=== PATIENT | male | born 1955 | race Caucasian/White ===

== ENCOUNTER → 2021-04-13 | Outpatient (CLI) | payer MEDICARE, OTHER ==
[~2021-04-13] MED LIST: CRESTOR20 MG PO; ECOTRIN81 MG PO; GLIMEPIRIDE4 MG PO; HUMALOG MI100 UNITS/ SC; JANUVIA100 MG PO; LANTUS100 UNITS/ SQ; LOVAZA PO; METOPROLOL TART50 MG PO; NIASPAN500 MG PO; TRICOR145 MG PO; ZESTRIL10 MG PO; [UNRECOGNIZED DRUG - OTHER] PO
== END ==
LOC: MRI 10:28
PROVIDERS: ATTEND Family Medicine
DX: M48.061 Spinal stenosis, lumbar region without neurogenic claudication (principal); M54.16 Radiculopathy, lumbar region
CPT/HCPCS: 72148

== ENCOUNTER → 2021-06-16 | Day surgery (SDC) | payer MEDICARE, OTHER ==
[2021-06-09 13:31] LABS: BASOPHILS % 0.3 % (0.0-1.0); EOSINOPHILS # (AUTO) 0.1 (0.0-0.4); EOSINOPHILS % 0.8 % (0.0-6.0); HEMATOCRIT 45.1 % (38.2-49.6); HEMOGLOBIN 14.2 g/dL (14.0-18.0); LYMPHOCYTES # (AUTO) 2.1 (1.0-3.2); LYMPHOCYTES % 23.5 % (18.0-39.1); MEAN CORPUSCULAR HEMOGLOBIN 27.4 pg (28-32); MEAN CORPUSCULAR HGB CONC 31.5 g/dL (31-35); MEAN CORPUSCULAR VOLUME 86.9 fL (81-99); MONOCYTES # (AUTO) 0.9 (0.2-0.8); NEUTROPHILS # (AUTO) 5.7 (2.1-6.9); NEUTROPHILS % 65.1 % (38.7-80.0); PLATELET COUNT 204 x10e3/uL (140-360); RED BLOOD COUNT 5.19 x10e6/uL (4.3-5.7); RED CELL DISTRIBUTION WIDTH 14.6 % (11.7-14.4)
[2021-06-09 13:51] LABS: ALBUMIN 4.5 g/dL (3.5-5.0); ALBUMIN/GLOBULIN RATIO 1.3 (0.8-2.0); CALCIUM 10.3 mg/dL (8.4-10.2); CHOL/HDL RATIO 3.5 (3.9-4.7); CREATININE, SERUM 0.9 mg/dL (0.72-1.25)
[2021-06-09 13:54] LABS: INR 0.92
[2021-06-11 09:29] VITALS: BP 164/73
[~2021-06-16] VITALS: Ht 182.9 cm; Wt 84.8 kg
[2021-06-16] VITALS (11 sets, daily range): BP systolic 108–148; BP diastolic 60–89
[~2021-06-16] MED LIST changes: +ASPIRIN 325 MG TAB ONE; +CENTRUM ADULTS1 EACH PO; +FENTANYL CITRATE/PF 100MCG/2 ML INJ ONE; +GABAPENTIN100 MG PO; +HEPARIN SOD (PORCINE) 1000 UNIT/ML 30ML ONE; +HEPARIN SOD/SOD CHLORIDE 1,000 ML ONE; +HEPARIN SOD/SOD CHLORIDE 2,000 ML ONE; +IOPAMIDOL 370 MG/ML 200 ML INFUS..BTL INJ ONE; +JARDIANCE10 MG PO; +LIDOCAINE HCL 2% LOCAL 20 ML VIAL ONE; +LIPITOR20 MG PO; +METFORMIN HCL500 MG PO; +MIDAZOLAM HCL 2 MG/2 ML VIAL ONE; +NITROGLYCERIN/D5W 200 MCG/ML 250 ML ONE; +PANTOPRAZOLE SO40 MG PO; +SODIUM CHLORIDE 0.9% 1000ML 1,000 ML ONE; +TICAGRELOR 90 MG TABLET ONE
== END | disposition home or self-care (01) ==
LOC: CATH LAB 06-11 08:46
PROVIDERS: ATTEND Internal Medicine Cardiovascular Disease
DX: I25.810 Atherosclerosis of coronary artery bypass graft(s) without angina pectoris (principal); R94.39 Abnormal result of other cardiovascular function study; I73.9 Peripheral vascular disease, unspecified; I10 Essential (primary) hypertension; E78.5 Hyperlipidemia, unspecified; R09.89 Other specified symptoms and signs involving the circulatory and respiratory systems; E11.9 Type 2 diabetes mellitus without complications; Z71.3 Dietary counseling and surveillance; Z01.812 Encounter for preprocedural laboratory examination; Z20.822 Contact with and (suspected) exposure to COVID-19; Z79.82 Long term (current) use of aspirin; Z79.4 Long term (current) use of insulin; Z79.899 Other long term (current) drug therapy; Z95.1 Presence of aortocoronary bypass graft; Z95.5 Presence of coronary angioplasty implant and graft
CPT/HCPCS: 93459; C9600; 36415; 80053; 80061; 85025; 85610; 92920; 92928; 93458; 99152; 99153; C1725; C1760; C1769; C1874; C1887; C1894; J1644; J2001; J2250; J3010; J7030; Q9967; U0002

== ENCOUNTER 2021-06-30 12:44 | Inpatient (IN) | payer MEDICARE, OTHER ==
[~2021-06-30] VITALS: Ht 182.9 cm; Wt 81.2 kg
[~2021-06-30 12:44] MED LIST changes: -ASPIRIN 325 MG TAB ONE; -FENTANYL CITRATE/PF 100MCG/2 ML INJ ONE; -HEPARIN SOD (PORCINE) 1000 UNIT/ML 30ML ONE; -HEPARIN SOD/SOD CHLORIDE 1,000 ML ONE; -HEPARIN SOD/SOD CHLORIDE 2,000 ML ONE; -IOPAMIDOL 370 MG/ML 200 ML INFUS..BTL INJ ONE; -LIDOCAINE HCL 2% LOCAL 20 ML VIAL ONE; -MIDAZOLAM HCL 2 MG/2 ML VIAL ONE; -NITROGLYCERIN/D5W 200 MCG/ML 250 ML ONE; -SODIUM CHLORIDE 0.9% 1000ML 1,000 ML ONE; -TICAGRELOR 90 MG TABLET ONE
[2021-06-30 13:34] LABS: BASOPHILS % 0.3 % (0.0-1.0); EOSINOPHILS # (AUTO) 0.1 (0.0-0.4); EOSINOPHILS % 0.4 % (0.0-6.0); LYMPHOCYTES # (AUTO) 1.7 (1.0-3.2); LYMPHOCYTES % 14.9 % (18.0-39.1); MEAN CORPUSCULAR HEMOGLOBIN 26.4 pg (28-32); MEAN CORPUSCULAR VOLUME 90.8 fL (81-99); MONOCYTES % 8.9 % (4.4-11.3); NEUTROPHILS # (AUTO) 8.5 (2.1-6.9); NEUTROPHILS % 74.9 % (38.7-80.0); PLATELET COUNT 295 x10e3/uL (140-360); RED BLOOD COUNT 2.39 x10e6/uL (4.3-5.7); RED CELL DISTRIBUTION WIDTH 15.8 % (11.7-14.4)
[2021-06-30 13:36] LABS: HEMATOCRIT 21.7 % (38.2-49.6); HEMOGLOBIN 6.3 g/dL (14.0-18.0)
[2021-06-30 13:48] LABS: INR 0.91; PROTHROMBIN TIME 12.9 seconds (11.9-14.5)
[2021-06-30 13:57] LABS: ALBUMIN 3.9 g/dL (3.5-5.0); ALBUMIN/GLOBULIN RATIO 1.3 (0.8-2.0); ANION GAP 15.2 mmol/L (8-16); CALCIUM 9.7 mg/dL (8.4-10.2); CREATININE, SERUM 0.97 mg/dL (0.72-1.25); POTASSIUM 4.2 mmol/L (3.5-5.1)
[2021-06-30] MEDS ORDERED: SODIUM CHLORIDE 0.9% 250ML 250 ML IV ONE (14:00)
[2021-06-30 14:04] LABS: CREATINE KINASE MB 2.9 ng/mL (0-5.0)
[2021-06-30 16:23] VITALS: BP 130/34
[2021-06-30 16:30] VITALS: BP 130/34
[2021-06-30 17:14] VITALS: BP 102/49
[2021-06-30] MEDS ORDERED: SODIUM CHLORIDE 0.9% 500ML 500 ML ONE (19:51)
[2021-06-30 20:00] VITALS: BP 107/49
[2021-06-30 21:40] LABS: CREATINE KINASE MB 3.4 ng/mL (0-5.0)
[2021-06-30] MEDS ORDERED: PANTOPRAZOLE SOD 40 MG TABEC PO ONE (22:30)
[2021-06-30] MEDS ORDERED: CLOPIDOGREL BISULFATE 75 MG TAB PO ONE (22:30)
[2021-06-30] MEDS ORDERED: LISINOPRIL 20 MG TAB PO ONE (22:30)
[2021-07-01] VITALS (8 sets, daily range): BP systolic 110–129; BP diastolic 48–61
[2021-07-01 00:36] LABS: FERRITIN 12.75 ng/mL (21.81-274.66)
[2021-07-01 06:10] LABS: BASOPHILS % 0.3 % (0.0-1.0); EOSINOPHILS # (AUTO) 0.1 (0.0-0.4); HEMATOCRIT 24.4 % (38.2-49.6); HEMOGLOBIN 7.5 g/dL (14.0-18.0); LYMPHOCYTES # (AUTO) 1.6 (1.0-3.2); LYMPHOCYTES % 22.3 % (18.0-39.1); MEAN CORPUSCULAR HEMOGLOBIN 27.4 pg (28-32); MEAN CORPUSCULAR HGB CONC 30.7 g/dL (31-35); MEAN CORPUSCULAR VOLUME 89.1 fL (81-99); MONOCYTES # (AUTO) 0.8 (0.2-0.8); MONOCYTES % 11.1 % (4.4-11.3); NEUTROPHILS # (AUTO) 4.7 (2.1-6.9); NEUTROPHILS % 64.7 % (38.7-80.0); PLATELET COUNT 217 x10e3/uL (140-360); RED BLOOD COUNT 2.74 x10e6/uL (4.3-5.7); RED CELL DISTRIBUTION WIDTH 15.3 % (11.7-14.4)
[2021-07-01 06:29] LABS: ALBUMIN 3.1 g/dL (3.5-5.0); ALBUMIN/GLOBULIN RATIO 1.2 (0.8-2.0); ANION GAP 12.9 mmol/L (8-16); CALCIUM 8.7 mg/dL (8.4-10.2); CREATININE, SERUM 0.85 mg/dL (0.72-1.25); POTASSIUM 3.9 mmol/L (3.5-5.1)
[2021-07-01 06:37] LABS: CREATINE KINASE MB 2.6 ng/mL (0-5.0)
[2021-07-01] MEDS ORDERED: PANTOPRAZOLE SOD 40 MG TABEC PO SCH (07:30)
[2021-07-01] MEDS: INSULIN GLARGINE 100 UNITS/ML VIAL SQ SCH ×2 (09:00→16:44)
[2021-07-01] MEDS: NON-FORMULARY MEDICATION (Empagliflozin (Jardiance) 10 MG) PO SCH (09:00)
[2021-07-01] MEDS: CYANOCOBALAMIN INJ 1,000 MCG/ML VIAL IM SCH (09:26)
[2021-07-01] MEDS: CLOPIDOGREL BISULFATE 75 MG TAB PO SCH ×2 (09:26→16:37)
[2021-07-01] MEDS: METOPROLOL TARTRATE 50 MG TAB PO SCH (16:37)
[2021-07-01] MEDS: LISINOPRIL 20 MG TAB PO SCH (16:37)
[2021-07-01] MEDS: ATORVASTATIN 40 MG TAB PO SCH (21:21)
[2021-07-02] VITALS (7 sets, daily range): BP systolic 101–123; BP diastolic 50–57
[2021-07-02] MEDS: NON-FORMULARY MEDICATION (Empagliflozin (Jardiance) 10 MG) PO SCH (08:18)
[2021-07-02] MEDS: CYANOCOBALAMIN INJ 1,000 MCG/ML VIAL IM SCH (08:18)
[2021-07-02] MEDS: INSULIN GLARGINE 100 UNITS/ML VIAL SQ SCH ×2 (09:00→17:00)
[2021-07-02] MEDS ORDERED: PROPOFOL IV EMULSION 10 MG/ML 20 ML VIAL ONE (12:11)
[2021-07-02] MEDS ORDERED: METOCLOPRAMIDE HCL 10 MG/2ML VIAL ONE (12:11)
[2021-07-02] MEDS ORDERED: LIDOCAINE HCL 2% LOCAL INJ 5 ML SDV VIAL INJ ONE (12:11)
[2021-07-02] MEDS ORDERED: EPHEDRINE SULFATE INJ 50 MG/ML VIAL ONE (12:11)
[2021-07-02 12:46] LABS: BASOPHILS % 0.3 % (0.0-1.0); EOSINOPHILS # (AUTO) 0.1 (0.0-0.4); EOSINOPHILS % 0.8 % (0.0-6.0); HEMOGLOBIN 7.7 g/dL (14.0-18.0); LYMPHOCYTES # (AUTO) 1.8 (1.0-3.2); LYMPHOCYTES % 27.7 % (18.0-39.1); MEAN CORPUSCULAR HEMOGLOBIN 26.9 pg (28-32); MEAN CORPUSCULAR HGB CONC 29.6 g/dL (31-35); MEAN CORPUSCULAR VOLUME 90.9 fL (81-99); MONOCYTES # (AUTO) 0.6 (0.2-0.8); NEUTROPHILS # (AUTO) 3.9 (2.1-6.9); NEUTROPHILS % 60.9 % (38.7-80.0); PLATELET COUNT 199 x10e3/uL (140-360); RED BLOOD COUNT 2.86 x10e6/uL (4.3-5.7)
[2021-07-02] MEDS ORDERED: MIDAZOLAM HCL 2 MG/2 ML VIAL ONE (12:48)
[2021-07-02] MEDS ORDERED: FENTANYL CITRATE/PF 100MCG/2 ML INJ ONE (12:48)
[2021-07-02] MEDS ORDERED: SODIUM CHLORIDE 0.9% 50ML 50 ML ONE (14:05)
[2021-07-02] MEDS ORDERED: IOPAMIDOL 370 MG/ML 200 ML INFUS..BTL INJ ONE (14:05)
[2021-07-02] MEDS: CLOPIDOGREL BISULFATE 75 MG TAB PO SCH (17:09)
[2021-07-02] MEDS: METOPROLOL TARTRATE 50 MG TAB PO SCH (17:09)
[2021-07-02] MEDS: LISINOPRIL 20 MG TAB PO SCH (17:10)
[2021-07-02] MEDS: ATORVASTATIN 40 MG TAB PO SCH (21:27)
[2021-07-03 00:02] VITALS: BP 111/53
[2021-07-03 05:24] VITALS: BP 107/54
[2021-07-03 05:50] LABS: BASOPHILS % 0.3 % (0.0-1.0); EOSINOPHILS # (AUTO) 0.1 (0.0-0.4); EOSINOPHILS % 1.2 % (0.0-6.0); HEMATOCRIT 25.6 % (38.2-49.6); HEMOGLOBIN 7.7 g/dL (14.0-18.0); LYMPHOCYTES # (AUTO) 1.1 (1.0-3.2); LYMPHOCYTES % 17.9 % (18.0-39.1); MEAN CORPUSCULAR HEMOGLOBIN 26.8 pg (28-32); MEAN CORPUSCULAR HGB CONC 30.1 g/dL (31-35); MEAN CORPUSCULAR VOLUME 89.2 fL (81-99); MONOCYTES # (AUTO) 0.7 (0.2-0.8); MONOCYTES % 11.1 % (4.4-11.3); NEUTROPHILS # (AUTO) 4.2 (2.1-6.9); NEUTROPHILS % 69.2 % (38.7-80.0); PLATELET COUNT 201 x10e3/uL (140-360); RED BLOOD COUNT 2.87 x10e6/uL (4.3-5.7)
[2021-07-03 07:51] VITALS: BP 135/60
[2021-07-03] MEDS: CYANOCOBALAMIN INJ 1,000 MCG/ML VIAL IM SCH (08:16)
[2021-07-03] MEDS: CLOPIDOGREL BISULFATE 75 MG TAB PO SCH (08:16)
[2021-07-03] MEDS: METOPROLOL TARTRATE 50 MG TAB PO SCH (08:17)
[2021-07-03] MEDS: LISINOPRIL 20 MG TAB PO SCH (08:17)
[2021-07-03] MEDS: NON-FORMULARY MEDICATION (Empagliflozin (Jardiance) 10 MG) PO SCH (09:00)
[2021-07-03] MEDS: INSULIN GLARGINE 100 UNITS/ML VIAL SQ SCH (09:30)
[2021-07-03 10:05] VITALS: BP 135/60
[2021-07-03 11:30] VITALS: BP 106/70
[2021-07-03] MEDS ORDERED: PANTOPRAZOLE SOD 40 MG TABEC PO SCH (16:30)
== END 2021-07-03 14:02 | disposition home or self-care (01) | DRG 374 ==
LOC: ER 12:57 → ERHOLD 14:30 → MED/SURG3 15:24
PROC: 30233N1 Transfusion of Nonautologous Red Blood Cells into Peripheral Vein, Percutaneous Approach (ICD-10-PCS; 2021-06-30)
PROC: 0DB48ZX Excision of Esophagogastric Junction, Via Natural or Artificial Opening Endoscopic, Diagnostic (ICD-10-PCS; 2021-07-02)
PROC: 0DB98ZX Excision of Duodenum, Via Natural or Artificial Opening Endoscopic, Diagnostic (ICD-10-PCS; principal; 2021-07-02 13:30)
DX: C15.9 Malignant neoplasm of esophagus, unspecified (principal); I21.A1 Myocardial infarction type 2; D62 Acute posthemorrhagic anemia; C78.00 Secondary malignant neoplasm of unspecified lung; C77.9 Secondary and unspecified malignant neoplasm of lymph node, unspecified; E11.9 Type 2 diabetes mellitus without complications; I25.10 Atherosclerotic heart disease of native coronary artery without angina pectoris; Z95.1 Presence of aortocoronary bypass graft; Z95.5 Presence of coronary angioplasty implant and graft; E78.5 Hyperlipidemia, unspecified; F17.220 Nicotine dependence, chewing tobacco, uncomplicated; K44.9 Diaphragmatic hernia without obstruction or gangrene; Z20.822 Contact with and (suspected) exposure to COVID-19
CPT/HCPCS: 36415; 43239; 71260; 80053; 82270; 82550; 82553; 82607; 82728; 82746; 82948; 83540; 84466; 84484; 85025; 85045; 85610; 86850; 86900; 86920; 88305; 88331; 88332; 93005; 93306; 94799; 99284; J2001; J2250; J2765; J3010; J3420; J7040; J7050; P9016; Q9967; U0002

== ENCOUNTER → 2021-11-30 | Outpatient (CLI) | payer MEDICARE, OTHER | LOC: MRI 08:16 | PROVIDERS: ATTEND Family Medicine | DX: M25.562 Pain in left knee (principal); S83.207A Unspecified tear of unspecified meniscus, current injury, left knee, initial encounter ==